=== PATIENT | female | born 1945 | race Two or more races ===

== ENCOUNTER 2022-05-01 20:35 | Inpatient (IN) | payer OTHER ==
[~2022-05-01] VITALS: Ht 162.6 cm; Wt 73.5 kg
[2022-05-01] MEDS ORDERED: IOHEXOL 350 MG/ML 100 ML VIAL ONE (20:53)
[2022-05-01] MEDS ORDERED: SODIUM CHLORIDE 0.9% 100 ML ONE (20:53)
[2022-05-01] MEDS ORDERED: DILTIAZEM HCL 5 MG/ML 5 ML VIAL IVP ONE (21:45)
[2022-05-01 21:47] LABS: EOSINOPHILS % (AUTO) 0 % (1.0-6.0); HEMOGLOBIN 10.6 g/dL (12.0-16.0); LYMPHOCYTES # (AUTO) 0.9 K/uL (1.0-4.8); LYMPHOCYTES % (AUTO) 7.8 % (22.0-44.0); MEAN CORPUSCULAR HEMOGLOBIN 28.8 pg (26.0-34.0); MEAN CORPUSCULAR HGB CONC 33.1 G/dL (31.0-37.0); MEAN CORPUSCULAR VOLUME 87 fL (80-100); MONOCYTES # (AUTO) 0.8 K/uL (0.1-1.0); MONOCYTES % (AUTO) 7.4 % (2.0-9.0); NEUTROPHILS # (AUTO) 9.6 K/uL (1.8-7.7); NEUTROPHILS % (AUTO) 84.8 % (40.0-70.0); PLATELET COUNT (AUTO) 217 K/uL (150-450); RED BLOOD CELL COUNT(AUTO) 3.68 MIL/uL (4.00-5.20); RED CELL DISTRIBUTION WIDTH 14.5 % (11.5-14.5)
[2022-05-01 21:56] LABS: CALCIUM, TOTAL 8.2 mg/dL (8.8-10.5); CREATININE 2.26 mg/dL (0.60-1.30); POTASSIUM 4.5 mmol/L (3.5-5.1)
[2022-05-01] MEDS ORDERED: ASPIRIN 81 MG CHEWABLE TABLET PO ONE (22:00)
[2022-05-01] MEDS ORDERED: CLOPIDOGREL BISULFATE 75 MG TABLET PO ONE (22:00)
[2022-05-01] MEDS ORDERED: ACETAMINOPHEN 325 MG TABLET PO PRN (22:00)
[2022-05-01] MEDS ORDERED: ONDANSETRON HCL 4 MG/2 ML VIAL IVP PRN (22:00)
[2022-05-01 22:01] LABS: INR 1.1 (0.9-1.1); PROTHROMBIN TIME 12.1 SEC (9.4-11.6)
[2022-05-01 22:02] LABS: ALBUMIN 2.6 g/dL (3.4-5.0); BILIRUBIN,TOTAL 0.4 mg/dL (0.1-1.0); TOTAL PROTEIN, SERUM 5.9 g/dL (6.4-8.2)
[2022-05-01 22:22] LABS: COVID AG,FIA SOURCE NASOPHARYNGEAL
[2022-05-01 22:24] LABS: HEMOGLOBIN A1C 7.5 % (3.8-5.6)
[2022-05-01] MEDS: DILTIAZEM HCL 125 MG in DEXTROSE 5%-WATER 100 ML IV SCH (22:30)
[2022-05-01] MEDS ORDERED: ASPIRIN 300 MG RECTAL SUPPOSITORY PR ONE (22:30)
[2022-05-01 22:35] LABS: CHOL/HDL RATIO 4.5 (3.9-5.7); THYROID STIMULATING HORMONE 1.57 uIU/mL (0.36-3.74)
[2022-05-01 23:14] LABS: ERYTHROCYTE SEDIMENTATION RATE 13 MM/HR (0-20)
[2022-05-01] MEDS ORDERED: DEXTROSE 50%-WATER 25 GM/50 ML SYRINGE IVP PRN (23:15)
[2022-05-02 01:30] LABS: APPEARANCE,URINE TURBID (CLEAR); BILIRUBIN,URINE NEGATIVE (NEGATIVE); GLUCOSE, URINE (UA) TRACE mg/dL (NEGATIVE); KETONES,URINE TRACE mg/dL (NEGATIVE); LEUKOCYTE ESTERASE ,URINE LARGE (NEGATIVE); NITRATE,URINE POSITIVE (NEGATIVE); OCCULT BLOOD,URINE LARGE (NEGATIVE); PH,URINE 5.5 (5.0-8.0); PROTEIN,URINE 100-200,SEE CONFIRM mg/dL (NEGATIVE); UROBILINOGEN,URINE <=1.0 mg/dL (<=1.0)
[2022-05-02 01:37] LABS: SODIUM,URINE RANDOM 32 mmol/l (20-110)
[2022-05-02 01:39] LABS: SPECIFIC GRAVITIY, URINE > 1.050 (1.003-1.030)
[2022-05-02 02:19] LABS: BACTERIA,URINE Few /HPF (None Seen); WBC,URINE Full Field /HPF (0-5)
[2022-05-02 02:21] LABS: SULFOSALICYLIC ACID,URINE 2+ (Negative)
[2022-05-02] MEDS: SODIUM CHLORIDE 0.9% 1,000 ML IV SCH ×2 (02:21→13:07)
[2022-05-02] MEDS: METOPROLOL TARTRATE 5 MG/5 ML VIAL IVP SCH ×4 (02:22→17:12)
[2022-05-02] MEDS ORDERED: CefTRIAXone 1 GM/DEXTROSE 50 ML IV SCH (06:45)
[2022-05-02 07:04] LABS: CREATININE 2.05 mg/dL (0.60-1.30); POTASSIUM 4.1 mmol/L (3.5-5.1)
[2022-05-02 07:12] LABS: ALBUMIN 2.9 g/dL (3.4-5.0); BILIRUBIN,TOTAL 0.4 mg/dL (0.1-1.0); TOTAL PROTEIN, SERUM 6.9 g/dL (6.4-8.2)
[2022-05-02] MEDS ORDERED: HEPARIN SODIUM,PORCINE 5,000 UNITS/ML VIAL IVP PRN (07:15)
[2022-05-02] MEDS ORDERED: HEPARIN SODIUM,PORCINE 5,000 UNITS/ML VIAL IVP ONE (07:15)
[2022-05-02] MEDS ORDERED: ASPIRIN 81 MG CHEWABLE TABLET PO SCH (08:00)
[2022-05-02 08:22] LABS: EOSINOPHILS % (AUTO) 0.1 % (1.0-6.0); HEMATOCRIT 34.8 % (36-46); HEMOGLOBIN 11.6 g/dL (12.0-16.0); LYMPHOCYTES # (AUTO) 1.1 K/uL (1.0-4.8); LYMPHOCYTES % (AUTO) 10.9 % (22.0-44.0); MEAN CORPUSCULAR HEMOGLOBIN 28.9 pg (26.0-34.0); MEAN CORPUSCULAR HGB CONC 33.4 G/dL (31.0-37.0); MEAN CORPUSCULAR VOLUME 86 fL (80-100); MONOCYTES % (AUTO) 9.8 % (2.0-9.0); NEUTROPHILS # (AUTO) 8.1 K/uL (1.8-7.7); NEUTROPHILS % (AUTO) 79.2 % (40.0-70.0); PLATELET COUNT (AUTO) 241 K/uL (150-450); RED BLOOD CELL COUNT(AUTO) 4.03 MIL/uL (4.00-5.20); RED CELL DISTRIBUTION WIDTH 14.4 % (11.5-14.5); RETICULOCYTE % (AUTO) 1.7 % (0.5-2.3)
[2022-05-02 08:35] LABS: INR 1.1 (0.9-1.1); PROTHROMBIN TIME 11.4 SEC (9.4-11.6)
[2022-05-02 08:36] LABS: % IRON SATURATION 16.9 % (22-44)
[2022-05-02] MEDS ORDERED: ATORVASTATIN CALCIUM 40 MG TABLET PO SCH (09:00)
[2022-05-02] MEDS: HEPARIN SODIUM 25000 UNITS/D5W 250 ML IV PRN (09:05)
[2022-05-02] MEDS: ASPIRIN 300 MG RECTAL SUPPOSITORY PR SCH (09:12)
[2022-05-02 16:57] VITALS: BP 117/54
[2022-05-02] MEDS: INSULIN LISPRO 100 UNITS/ML SQ PRN ×2 (17:17→20:24)
[2022-05-02] MEDS: HEPARIN SODIUM,PORCINE 5,000 UNITS/ML VIAL IVP PRN (17:18)
[2022-05-02 20:01] LABS: GLUCOMETER DEV NAME(LOC) 5N.1C; GLUCOSE,POINT OF CARE 198 MG/DL (70-110)
[2022-05-02] MEDS ORDERED: MORPHINE SULFATE 2 MG/ML SYRINGE IVP PRN (20:15)
[2022-05-02 20:19] VITALS: BP 123/53
[2022-05-02] MEDS: METOPROLOL TARTRATE 25 MG TABLET PO SCH (20:20)
[2022-05-02 20:46] LABS: GLUCOMETER DEV NAME(LOC) 5N.3; GLUCOSE,POINT OF CARE 167 MG/DL (70-110)
[2022-05-03 00:44] VITALS: BP 107/49
[2022-05-03] MEDS: SODIUM CHLORIDE 0.9% 1,000 ML IV SCH ×2 (03:51→18:26)
[2022-05-03 04:10] VITALS: BP 120/53
[2022-05-03] MEDS: METOPROLOL TARTRATE 5 MG/5 ML VIAL IVP SCH ×2 (06:00)
[2022-05-03] MEDS: METOPROLOL TARTRATE 25 MG TABLET PO SCH ×2 (08:04→21:00)
[2022-05-03] MEDS: ATORVASTATIN CALCIUM 40 MG TABLET PO SCH (08:04)
[2022-05-03] MEDS: CefTRIAXone 1 GM/DEXTROSE 50 ML IV SCH (08:04)
[2022-05-03 08:20] VITALS: BP 104/46
[2022-05-03 08:48] LABS: BASOPHILS % (AUTO) 0.3 % (0.0-2.0); EOSINOPHILS % (AUTO) 1.1 % (1.0-6.0); HEMATOCRIT 33.9 % (36-46); HEMOGLOBIN 11.4 g/dL (12.0-16.0); LYMPHOCYTES # (AUTO) 1.4 K/uL (1.0-4.8); LYMPHOCYTES % (AUTO) 13.5 % (22.0-44.0); MEAN CORPUSCULAR HEMOGLOBIN 29.3 pg (26.0-34.0); MEAN CORPUSCULAR HGB CONC 33.6 G/dL (31.0-37.0); MEAN CORPUSCULAR VOLUME 87 fL (80-100); MONOCYTES # (AUTO) 0.9 K/uL (0.1-1.0); NEUTROPHILS # (AUTO) 7.9 K/uL (1.8-7.7); NEUTROPHILS % (AUTO) 76.1 % (40.0-70.0); PLATELET COUNT (AUTO) 250 K/uL (150-450); RED BLOOD CELL COUNT(AUTO) 3.89 MIL/uL (4.00-5.20); RED CELL DISTRIBUTION WIDTH 14.9 % (11.5-14.5)
[2022-05-03 08:59] LABS: CHOL/HDL RATIO 3.9 (3.9-5.7)
[2022-05-03] MEDS: ASPIRIN 300 MG RECTAL SUPPOSITORY PR SCH (09:00)
[2022-05-03 09:11] LABS: HEMOGLOBIN A1C 7.1 % (3.8-5.6)
[2022-05-03] MEDS: HEPARIN SODIUM 25000 UNITS/D5W 250 ML IV PRN ×2 (10:11→16:56)
[2022-05-03] MEDS: HEPARIN SODIUM,PORCINE 5,000 UNITS/ML VIAL IVP PRN (10:11)
[2022-05-03 11:37] VITALS: BP 122/50
[2022-05-03] MEDS ORDERED: AMIODARONE HCL 150 MG in DEXTROSE 5%-WATER 97 ML IV ONE (13:15)
[2022-05-03] MEDS ORDERED: AMIODARONE HCL 360 MG in DEXTROSE 5%-WATER 242.8 ML IV ONE (13:30)
[2022-05-03 15:20] VITALS: BP 101/52
[2022-05-03 18:06] LABS: GLUCOMETER DEV NAME(LOC) 5N.3; GLUCOSE,POINT OF CARE 272 MG/DL (70-110)
[2022-05-03 18:06] LABS: GLUCOMETER DEV NAME(LOC) 5N.3; GLUCOSE,POINT OF CARE 201 MG/DL (70-110)
[2022-05-03] MEDS ORDERED: AMIODARONE HCL 540 MG in DEXTROSE 5%-WATER 239.2 ML IV ONE (19:30)
[2022-05-03 20:05] VITALS: BP 97/47
[2022-05-03 21:05] LABS: GLUCOMETER DEV NAME(LOC) 5S.1B; GLUCOSE,POINT OF CARE 264 MG/DL (70-110)
[2022-05-03] MEDS: INSULIN LISPRO 100 UNITS/ML SQ PRN (22:11)
[2022-05-04] VITALS (8 sets, daily range): BP systolic 95–125; BP diastolic 50–74
[2022-05-04] MEDS: HEPARIN SODIUM 25000 UNITS/D5W 250 ML IV PRN (00:13)
[2022-05-04 06:36] LABS: GLUCOMETER DEV NAME(LOC) 5S.1B; GLUCOSE,POINT OF CARE 168 MG/DL (70-110)
[2022-05-04] MEDS: INSULIN LISPRO 100 UNITS/ML SQ PRN ×4 (07:03→22:25)
[2022-05-04] MEDS: ATORVASTATIN CALCIUM 40 MG TABLET PO SCH (07:59)
[2022-05-04] MEDS: METOPROLOL TARTRATE 25 MG TABLET PO SCH ×2 (07:59→21:00)
[2022-05-04] MEDS: CefTRIAXone 1 GM/DEXTROSE 50 ML IV SCH (07:59)
[2022-05-04] MEDS: SODIUM CHLORIDE 0.9% 1,000 ML IV SCH (08:00)
[2022-05-04 10:12] LABS: GLUCOMETER DEV NAME(LOC) 5N.3; GLUCOSE,POINT OF CARE 130 MG/DL (70-110)
[2022-05-04] MEDS ORDERED: DIGOXIN 250 MCG/ML 2 ML AMP IVP ONE (10:15)
[2022-05-04 10:37] LABS: CALCIUM, TOTAL 8.4 mg/dL (8.8-10.5)
[2022-05-04] MEDS ORDERED: AMIODARONE HCL 750 MG in DEXTROSE 5%-WATER 485 ML IV SCH (13:30)
[2022-05-04 13:56] LABS: GLUCOMETER DEV NAME(LOC) 5S.1B; GLUCOSE,POINT OF CARE 242 MG/DL (70-110)
[2022-05-04 18:36] LABS: GLUCOMETER DEV NAME(LOC) 5S.1B; GLUCOSE,POINT OF CARE 211 MG/DL (70-110)
[2022-05-04] MEDS ORDERED: POTASSIUM CHLORIDE 20 MEQ ER TABLET PO ONE (20:15)
[2022-05-04 21:11] LABS: GLUCOMETER DEV NAME(LOC) 5S.1B; GLUCOSE,POINT OF CARE 276 MG/DL (70-110)
[2022-05-04] MEDS: APIXABAN 5 MG TABLET PO SCH (22:21)
[2022-05-05] MEDS: METOPROLOL TARTRATE 25 MG TABLET PO SCH ×3 (00:58→21:22)
[2022-05-05 06:11] VITALS: BP 136/70
[2022-05-05 06:22] LABS: GLUCOMETER DEV NAME(LOC) 5S.1B; GLUCOSE,POINT OF CARE 165 MG/DL (70-110)
[2022-05-05] MEDS: INSULIN LISPRO 100 UNITS/ML SQ PRN ×3 (06:47→21:25)
[2022-05-05 07:18] LABS: BASOPHILS % (AUTO) 0.1 % (0.0-2.0); EOSINOPHILS % (AUTO) 1.5 % (1.0-6.0); HEMATOCRIT 35.6 % (36-46); HEMOGLOBIN 11.7 g/dL (12.0-16.0); LYMPHOCYTES # (AUTO) 1.9 K/uL (1.0-4.8); LYMPHOCYTES % (AUTO) 16.2 % (22.0-44.0); MEAN CORPUSCULAR HEMOGLOBIN 28.8 pg (26.0-34.0); MEAN CORPUSCULAR HGB CONC 32.8 G/dL (31.0-37.0); MEAN CORPUSCULAR VOLUME 88 fL (80-100); MONOCYTES # (AUTO) 1.1 K/uL (0.1-1.0); MONOCYTES % (AUTO) 8.8 % (2.0-9.0); NEUTROPHILS # (AUTO) 8.8 K/uL (1.8-7.7); NEUTROPHILS % (AUTO) 73.4 % (40.0-70.0); PLATELET COUNT (AUTO) 305 K/uL (150-450); RED BLOOD CELL COUNT(AUTO) 4.06 MIL/uL (4.00-5.20); RED CELL DISTRIBUTION WIDTH 14.9 % (11.5-14.5)
[2022-05-05 07:20] VITALS: BP 113/50
[2022-05-05 07:37] LABS: ALANINE AMINOTRANSFERASE 29 U/L (12-78); ALBUMIN 2.5 g/dL (3.4-5.0); ALKALINE PHOSPHATASE 77 U/L (46-116); ANION GAP 8 mmol/L (8-16); ASPARTATE AMINOTRANSFERASE 28 U/L (15-37); BILIRUBIN,TOTAL 0.3 mg/dL (0.1-1.0); CALCIUM, TOTAL 8.5 mg/dL (8.8-10.5); CARBON DIOXIDE 26 mmol/L (22-29); CHLORIDE 106 mmol/L (98-107); CREATININE 0.88 mg/dL (0.60-1.30); GLOMERULAR FILTR. RATE CALC > 60 mL/min (>60); GLUCOSE,RANDOM 155 mg/dL (70-110); POTASSIUM 4.8 mmol/L (3.5-5.1); SODIUM SERUM 140 mmol/L (136-145); TOTAL PROTEIN, SERUM 6.1 g/dL (6.4-8.2); UREA NITROGEN, BLOOD 15 mg/dL (7-18)
[2022-05-05] MEDS: CefTRIAXone 1 GM/DEXTROSE 50 ML IV SCH (08:00)
[2022-05-05] MEDS: ASPIRIN 81 MG DR TABLET PO SCH (08:25)
[2022-05-05] MEDS: ATORVASTATIN CALCIUM 40 MG TABLET PO SCH (08:26)
[2022-05-05] MEDS: APIXABAN 5 MG TABLET PO SCH ×2 (08:26→21:20)
[2022-05-05 13:00] VITALS: BP 130/69
[2022-05-05] MEDS: AMIODARONE HCL 200 MG TABLET PO SCH ×2 (16:00→21:22)
[2022-05-05 17:30] VITALS: BP 125/78
[2022-05-05 19:10] VITALS: BP 128/64
[2022-05-05 20:36] LABS: GLUCOMETER DEV NAME(LOC) 5S.1B; GLUCOSE,POINT OF CARE 155 MG/DL (70-110)
[2022-05-05 21:16] LABS: GLUCOMETER DEV NAME(LOC) 5N.3; GLUCOSE,POINT OF CARE 167 MG/DL (70-110)
[2022-05-05 23:30] VITALS: BP 120/61
[2022-05-06 03:30] VITALS: BP 118/60
[2022-05-06 06:30] LABS: BASOPHILS % (AUTO) 0.3 % (0.0-2.0); EOSINOPHILS % (AUTO) 1.7 % (1.0-6.0); HEMATOCRIT 31.9 % (36-46); HEMOGLOBIN 10.6 g/dL (12.0-16.0); LYMPHOCYTES % (AUTO) 16.4 % (22.0-44.0); MEAN CORPUSCULAR HEMOGLOBIN 29.2 pg (26.0-34.0); MEAN CORPUSCULAR HGB CONC 33.2 G/dL (31.0-37.0); MEAN CORPUSCULAR VOLUME 88 fL (80-100); MONOCYTES # (AUTO) 1.1 K/uL (0.1-1.0); NEUTROPHILS % (AUTO) 72.6 % (40.0-70.0); PLATELET COUNT (AUTO) 262 K/uL (150-450); RED BLOOD CELL COUNT(AUTO) 3.63 MIL/uL (4.00-5.20)
[2022-05-06 06:34] LABS: CALCIUM, TOTAL 8.3 mg/dL (8.8-10.5); CREATININE 1.01 mg/dL (0.60-1.30); POTASSIUM 4.1 mmol/L (3.5-5.1)
[2022-05-06 06:42] LABS: GLUCOMETER DEV NAME(LOC) 5N.3; GLUCOSE,POINT OF CARE 140 MG/DL (70-110)
[2022-05-06 08:00] VITALS: BP 111/66
[2022-05-06] MEDS: ASPIRIN 81 MG DR TABLET PO SCH (09:26)
[2022-05-06] MEDS: APIXABAN 5 MG TABLET PO SCH ×2 (09:26→21:25)
[2022-05-06] MEDS: METOPROLOL TARTRATE 25 MG TABLET PO SCH ×2 (09:26→21:25)
[2022-05-06] MEDS: ATORVASTATIN CALCIUM 40 MG TABLET PO SCH (09:26)
[2022-05-06] MEDS: AMIODARONE HCL 200 MG TABLET PO SCH ×3 (09:27→21:25)
[2022-05-06] MEDS: CefTRIAXone 1 GM/DEXTROSE 50 ML IV SCH (11:02)
[2022-05-06 11:26] VITALS: BP 108/54
[2022-05-06 16:14] VITALS: BP 111/61
[2022-05-06 17:21] LABS: GLUCOMETER DEV NAME(LOC) 5S.1B; GLUCOSE,POINT OF CARE 122 MG/DL (70-110)
[2022-05-06 20:00] VITALS: BP 124/54
[2022-05-06 21:06] LABS: GLUCOMETER DEV NAME(LOC) 5S.1B; GLUCOSE,POINT OF CARE 111 MG/DL (70-110)
[2022-05-06 22:31] LABS: GLUCOMETER DEV NAME(LOC) 5N.1C; GLUCOSE,POINT OF CARE 89 MG/DL (70-110)
[2022-05-07] VITALS (7 sets, daily range): BP systolic 102–139; BP diastolic 50–70
[2022-05-07 06:11] LABS: BASOPHILS % (AUTO) 0.2 % (0.0-2.0); LYMPHOCYTES # (AUTO) 2.1 K/uL (1.0-4.8); MEAN CORPUSCULAR HGB CONC 33.2 G/dL (31.0-37.0); MEAN CORPUSCULAR VOLUME 87 fL (80-100); MONOCYTES # (AUTO) 1.2 K/uL (0.1-1.0); MONOCYTES % (AUTO) 9.6 % (2.0-9.0); NEUTROPHILS # (AUTO) 9.2 K/uL (1.8-7.7); NEUTROPHILS % (AUTO) 72.2 % (40.0-70.0); PLATELET COUNT (AUTO) 278 K/uL (150-450); RED BLOOD CELL COUNT(AUTO) 3.44 MIL/uL (4.00-5.20); RED CELL DISTRIBUTION WIDTH 15.4 % (11.5-14.5)
[2022-05-07 06:32] LABS: CALCIUM, TOTAL 8.3 mg/dL (8.8-10.5); CREATININE 0.93 mg/dL (0.60-1.30); POTASSIUM 4.2 mmol/L (3.5-5.1)
[2022-05-07 06:47] LABS: GLUCOMETER DEV NAME(LOC) 5S.2B; GLUCOSE,POINT OF CARE 131 MG/DL (70-110)
[2022-05-07] MEDS: ASPIRIN 81 MG DR TABLET PO SCH (09:25)
[2022-05-07] MEDS: APIXABAN 5 MG TABLET PO SCH ×2 (09:25→21:40)
[2022-05-07] MEDS: METOPROLOL TARTRATE 25 MG TABLET PO SCH ×2 (09:25→21:40)
[2022-05-07] MEDS: ATORVASTATIN CALCIUM 40 MG TABLET PO SCH (09:25)
[2022-05-07] MEDS: AMIODARONE HCL 200 MG TABLET PO SCH ×3 (09:26→21:40)
[2022-05-07] MEDS: CefTRIAXone 1 GM/DEXTROSE 50 ML IV SCH (09:28)
[2022-05-07] MEDS: INSULIN LISPRO 100 UNITS/ML SQ PRN ×3 (14:58→21:40)
[2022-05-07 18:11] LABS: GLUCOMETER DEV NAME(LOC) 5S.1B; GLUCOSE,POINT OF CARE 254 MG/DL (70-110)
[2022-05-07] MEDS ORDERED: DOCUSATE SODIUM 100 MG CAPSULE PO PRN (20:45)
[2022-05-07 21:06] LABS: GLUCOMETER DEV NAME(LOC) 5N.1C; GLUCOSE,POINT OF CARE 230 MG/DL (70-110)
[2022-05-07 21:06] LABS: GLUCOMETER DEV NAME(LOC) 5N.1C; GLUCOSE,POINT OF CARE 189 MG/DL (70-110)
[2022-05-08 05:39] VITALS: BP 112/62
[2022-05-08 06:06] LABS: BASOPHILS % (AUTO) 0.2 % (0.0-2.0); EOSINOPHILS % (AUTO) 1.8 % (1.0-6.0); HEMATOCRIT 31.8 % (36-46); HEMOGLOBIN 10.5 g/dL (12.0-16.0); LYMPHOCYTES # (AUTO) 1.8 K/uL (1.0-4.8); MEAN CORPUSCULAR VOLUME 88 fL (80-100); MONOCYTES # (AUTO) 1.1 K/uL (0.1-1.0); MONOCYTES % (AUTO) 7.3 % (2.0-9.0); NEUTROPHILS % (AUTO) 78.7 % (40.0-70.0); PLATELET COUNT (AUTO) 305 K/uL (150-450); RED BLOOD CELL COUNT(AUTO) 3.63 MIL/uL (4.00-5.20)
[2022-05-08 06:13] LABS: CALCIUM, TOTAL 8.6 mg/dL (8.8-10.5); CREATININE 1.05 mg/dL (0.60-1.30); POTASSIUM 4.5 mmol/L (3.5-5.1)
[2022-05-08 07:21] VITALS: BP 117/63
[2022-05-08] MEDS: METOPROLOL TARTRATE 25 MG TABLET PO SCH (09:21)
[2022-05-08] MEDS: ATORVASTATIN CALCIUM 40 MG TABLET PO SCH (09:21)
[2022-05-08] MEDS: ASPIRIN 81 MG DR TABLET PO SCH (09:21)
[2022-05-08] MEDS: APIXABAN 5 MG TABLET PO SCH (09:22)
[2022-05-08] MEDS: AMIODARONE HCL 200 MG TABLET PO SCH (09:22)
[2022-05-08] MEDS: CefTRIAXone 1 GM/DEXTROSE 50 ML IV SCH (09:23)
[2022-05-08 11:06] VITALS: BP 120/51
[2022-05-08] MEDS: INSULIN LISPRO 100 UNITS/ML SQ PRN (12:24)
[2022-05-08 14:15] VITALS: BP 128/58
[2022-05-08] MEDS ORDERED: AMIODARONE HCL 200 MG TABLET PO SCH (16:00)
[2022-05-08 18:37] LABS: GLUCOMETER DEV NAME(LOC) 5N.1C; GLUCOSE,POINT OF CARE 95 MG/DL (70-110)
[2022-05-08 21:12] LABS: GLUCOMETER DEV NAME(LOC) 5S.1B; GLUCOSE,POINT OF CARE 212 MG/DL (70-110)
== END 2022-05-08 16:15 | DRG 45 ==
LOC: EDBD 20:39 → EMS 20:39 → 5N 05-02 16:02
PROVIDERS: ADMIT Hospitalist; ATTEND Hospitalist
PROC: 05HY33Z Insertion of Infusion Device into Upper Vein, Percutaneous Approach (ICD-10-PCS; principal; 2022-05-03)
DX: I63.40 Cerebral infarction due to embolism of unspecified cerebral artery (principal); G93.41 Metabolic encephalopathy; E43 Unspecified severe protein-calorie malnutrition; I21.A1 Myocardial infarction type 2; N17.9 Acute kidney failure, unspecified; E11.22 Type 2 diabetes mellitus with diabetic chronic kidney disease; F01.50 Vascular dementia, unspecified severity, without behavioral disturbance, psychotic disturbance, mood disturbance, and anxiety; I48.0 Paroxysmal atrial fibrillation; D63.8 Anemia in other chronic diseases classified elsewhere; Z20.822 Contact with and (suspected) exposure to COVID-19; E46 Unspecified protein-calorie malnutrition; N18.9 Chronic kidney disease, unspecified; N39.0 Urinary tract infection, site not specified; E11.65 Type 2 diabetes mellitus with hyperglycemia; Z99.3 Dependence on wheelchair; Z79.01 Long term (current) use of anticoagulants; Z68.27 Body mass index [BMI] 27.0-27.9, adult
CPT/HCPCS: 36245; 36569; 70450; 70496; 70551; 71045; 76770; 76937; 80048; 80053; 80061; 81001; 81002; 82140; 82570; 82962; 83036; 83540; 83550; 84300; 84443; 84484; 85025; 85045; 85610; 85651; 85730; 87081; 87086; 92526; 92610; 93005; 93306; 93880; 97110; 97112; 97116; 97162; 97166; 97530; 97535; 99291; J0282; J0696; J1160; J1644; J3490; J7030; J7050; J7060; Q9967; 36415-L1; 36415-TC